=== PATIENT | male | born 1935 | race Caucasian/White ===

== ENCOUNTER 2018-10-06 14:10 | Inpatient (IN) | payer MEDICARE, OTHER ==
[~2018-10-06] VITALS: Ht 167.6 cm; Wt 100.8 kg
[2018-11-11] VITALS (13 sets, daily range): BP systolic 101–146; BP diastolic 50–80; PULSE 68–100; TEMP 97.5–98.3
[2018-11-11] MEDS ORDERED: LASIX 20MG TABL20 MG PO (05:45)
[2018-11-11] MEDS ORDERED: TOPROL XL100 MG PO (05:45)
[2018-11-11] MEDS ORDERED: COZAAR 50MG50 MG/TAB PO (05:46)
[2018-11-11] MEDS ORDERED: MULTI VITAMINS1 TAB PO (05:47)
[2018-11-11] MEDS ORDERED: COUMADIN 3MG3 MG/TAB PO (05:47)
[2018-11-11] MEDS ORDERED: FERROUSAL325 MG PO (05:48)
[2018-11-11] MEDS ORDERED: FOLIC ACID 40400 MCG PO (05:48)
[2018-11-11] MEDS ORDERED: LUTEIN20 M1 PO (05:49)
[2018-11-11] MEDS ORDERED: VITAMIN C500 MG PO (05:49)
[2018-11-11 06:29] LABS: INR 1.1 (0.8-3.0); PROTHROMBIN TIME 12.6 SECONDS (9.7-12.8)
--- NOTE | 2018-11-11 09:15 | NUR ---
returned to room from PACU per bed, awake and alert, IV infusing and placed on pump at 100ml/hr, O2 on at 3L/NC and O2 sat 94%, JOHNNIE hose on right leg and SCDS on bilaterally, has bulky dressing to left knee and is CD&I, rolled to side and no wrinkles in linens or wires under patient, has sensation to feet and is able to wiggle his toes, full assessment completed, see interventions for further info, taking sips of water and tolerates well, denies needs, family at bedside
--- NOTE | 2018-11-11 09:48 | NUR ---
awake and visiting with family, denies needs
--- NOTE | 2018-11-11 10:00 | NUR ---
c/o pain to left knee 08/15 and medicated with hydrocodone 7.5mg 2 tabs, provided pudding per patient's request and if tolerates will instruct on ordering regular food
--- NOTE | 2018-11-11 10:30 | NUR ---
awake and talking on phone, denies needs
--- NOTE | 2018-11-11 11:00 | NUR ---
states relief from pain pills given earlier, tolerated pudding and instructed on ordering regular food
--- NOTE | 2018-11-11 11:55 | NUR ---
sitting up in bed ready to eat regular food, medicated with scheduled toradol 15mg slow IV, denies needs
--- NOTE | 2018-11-11 13:00 | NUR ---
sitting up in bed and had lunch and tolerated well, visiting with friends, denies needs
--- NOTE | 2018-11-11 14:08 | NUR ---
MARIAMA met with the patient to discuss discharge plan. The patient lives in [place] with his , Jeannie. He reports independence with ADLs and has a cane, crutches, and a walker. The patient's PCP is Dr. Lawson Rios and he receives his medications at [facility]. He reports no difficulties obtaining his meds. The patient does not have advanced directives in EMR, but he states that he does have them completed and at home. He states his is his DPOA-HC. The patient plans to return home with his and receive outpatient therapy at [facility] upon discharge. No additional needs at this time.
--- NOTE | 2018-11-11 14:15 | NUR ---
appears to be sleeping, awakened and meds given, denies needs
--- NOTE | 2018-11-11 16:10 | NUR ---
Dr Arrington was in to see patient
--- NOTE | 2018-11-11 18:15 | NUR ---
sitting up in bed, has had supper and tolerated well, denies needs
--- NOTE | 2018-11-11 18:51 | NUR ---
bedside shift report given to JACEY Mccarthy
--- NOTE | 2018-11-11 20:00 | NUR ---
Report received, assumed care for applications system analyst. Assessment complete. VS stable. C/O pain to left knee-rating 5/10-[place] one tab given per dr order. Plan of care discussed for ambulation this shift. Verbalizes understanding. D5LR @ 60ml/hr infusing to Right wrist 20G. SCD/JOHNNIE to right lower extremity. Fresh ice pack to left knee. Grimes draining clear yellow urine. Bulky white dressing/liyah bandage-C/D/I. Clarification received on acetaminophen allergy-states darvocet caused the reaction-has taken acetaminophen since with no issues. Denies questions or concerns at this time. Call light within reach/bed in low/wheels locked. Will monitor.
--- NOTE | 2018-11-11 22:00 | NUR ---
Up out of bed at this time with assist of 2. Ambulated approx 100 feet. Tolerated well.
--- NOTE | 2018-11-12 05:00 | NUR ---
IV site infiltrated. New IV placed in left hand 20G.
[2018-11-12 05:30] VITALS: BP 126/53; PULSE 56; TEMP 97.5
[2018-11-12] MEDS ORDERED: NORCO 325 MG-7.1 TAB PO (06:14)
[2018-11-12] MEDS ORDERED: ULTRAM 50MG TAB50 MG PO (06:14)
--- NOTE | 2018-11-12 06:48 | NUR ---
Report given to JACEY Jimenez.
[2018-11-12 06:52] LABS: HEMOGLOBIN 13.2 g/dl (13.5-18.0)
[2018-11-12 07:06] LABS: INR 1.1 (0.8-3.0)
--- NOTE | 2018-11-12 07:16 | NUR ---
Report given to Grzegorz MARI
--- NOTE | 2018-11-12 07:18 | NUR ---
REPORT FROM JOSÉ MIGUEL MARI.
[2018-11-12 08:12] VITALS: BP 127/60; PULSE 92; TEMP 97.8
--- NOTE | 2018-11-12 08:42 | NUR ---
PT UP IN BED FOR BREAKFAST. DR COLES IN TO SEE PT AND CHANGE DRESSING. PT TOLERATED WELL, MAY NEED PLACEMENT.
[2018-11-12 11:47] VITALS: BP 121/58; PULSE 65; TEMP 97.6
--- NOTE | 2018-11-12 16:36 | NUR ---
PT VOIDING AND SITTING UP IN RECLINER RESTING.
[2018-11-12 16:38] VITALS: BP 128/55; PULSE 57; TEMP 97.8
--- NOTE | 2018-11-12 18:58 | NUR ---
Report to Sheila MARI.
[2018-11-12 19:28] VITALS: BP 145/66; PULSE 70; TEMP 98
--- NOTE | 2018-11-12 21:15 | NUR ---
Patient just returned from the bathroom and ambulated in hallway down inpatient rehab hallway and back to his room. Reviewed removing [place] hose twice a day for 20minutes and reapplying. [place] hose removed for now and SCD's applied. Ice pack on left knee. Tramadol reviewed and given for pain. Declined snack.
--- NOTE | 2018-11-12 22:45 | NUR ---
Patient resting quietly in bed with cpap on.
[2018-11-13] VITALS (7 sets, daily range): BP systolic 122–192; BP diastolic 55–83; PULSE 64–87; TEMP 97.5–98.6
--- NOTE | 2018-11-13 02:19 | NUR ---
Patient resting with eyes closed. CPAP on.
--- NOTE | 2018-11-13 04:10 | NUR ---
Patient awakened for vitals and new ice pack applied to left knee. Tramadol 50 mg given for pain.
--- NOTE | 2018-11-13 06:35 | NUR ---
reports tramadol not effective. [place] 1 tab reviewed and given for pain 4/10 left knee.
--- NOTE | 2018-11-13 07:03 | NUR ---
REPORT FROM FREDERIC MARI.
[2018-11-13 07:06] LABS: HEMATOCRIT 39.3 % (42.0-52.0)
[2018-11-13 07:08] LABS: INR 1.2 (0.8-3.0); PROTHROMBIN TIME 14.5 SECONDS (9.7-12.8)
--- NOTE | 2018-11-13 17:07 | NUR ---
PT REFUSING IRON SUPPLEMENT CAUSING CONSTIPATION. WANTS TO HOLD UNTIL HE HAS A BM.
--- NOTE | 2018-11-13 18:53 | NUR ---
REPORT TO RASHMI MARI.
--- NOTE | 2018-11-13 21:00 | NUR ---
Pt. sitting up in chair at this time. Pt. is A&OX3, assessment complete. INT to lt. hand patent. Aquacell dressing to lt. knee CDI. Pt. reports pain at a 5 on pain scale, gave paim meds per orders. Pt. c/o constipation. YOSHI Pabon notified. New orders received. Pt. denies further needs, call light within reach.
[2018-11-14 03:27] VITALS: BP 162/78; PULSE 88; TEMP 98.9
--- NOTE | 2018-11-14 06:44 | NUR ---
apppears to be dozing but arouses easily, CPAP on, bedside shift report received from JACEY Hall
[2018-11-14] MEDS ORDERED: CELEBREX 200MG200 MG PO (07:51)
[2018-11-14 07:52] LABS: INR 1.8 (0.8-3.0); PROTHROMBIN TIME 21.2 SECONDS (9.7-12.8)
--- NOTE | 2018-11-14 08:15 | NUR ---
attempting to get out of bed independently without his walker, reminded him about always using the walker and he verbalizes understanding, assisted into the bathroom
[2018-11-14 08:33] VITALS: BP 165/68; PULSE 93; TEMP 98.3
--- NOTE | 2018-11-14 08:40 | NUR ---
sitting on side of bed, full assessment comopleted, see interventions for further info, up and about in room independently
--- NOTE | 2018-11-14 08:55 | NUR ---
ambulated out to [facility] with physical therapy for group exercises
--- NOTE | 2018-11-14 09:35 | NUR ---
ambulated back to room and remains up in recliner after therapy
--- NOTE | 2018-11-14 10:00 | NUR ---
is ready to go home, medicated with ultram 100mg for c/os pain 07/16 and in anticipation of discharge
--- NOTE | 2018-11-14 10:15 | NUR ---
Patient will discharge home today with his . Patient will receive outpatient PT starting on Saturday. SW presented IM to patient and . Patient signed but did not want a copy.
--- NOTE | 2018-11-14 10:27 | NUR ---
discharge instructions given to patient and his , verbalizes understanding
--- NOTE | 2018-11-14 10:40 | NUR ---
discharged per WC
--- NOTE | 2018-11-14 11:03 | NUR ---
Initial visit; Patient thanked Glass Melt Operator for looking in on him and offering God's blessings.
== END 2018-11-14 10:40 | disposition home or self-care (01) | DRG 470 ==
LOC: JCC 11-11 05:11
PROVIDERS: Nurse Anesthetist, Certified Registered; Physician Assistant; ADMIT Orthopaedic Surgery
PROC: 0SRD0J9 Replacement of Left Knee Joint with Synthetic Substitute, Cemented, Open Approach (ICD-10-PCS; principal; 2018-11-11 07:30)
DX: M17.12 Unilateral primary osteoarthritis, left knee (principal); I48.91 Unspecified atrial fibrillation; H26.9 Unspecified cataract; G47.30 Sleep apnea, unspecified; I10 Essential (primary) hypertension; J44.9 Chronic obstructive pulmonary disease, unspecified; G47.33 Obstructive sleep apnea (adult) (pediatric); E03.9 Hypothyroidism, unspecified; Z87.891 Personal history of nicotine dependence
CPT/HCPCS: A4314; A9284; C1776; J0690; J1100; J1885; J2250; J2405; J2704; J3010; J7120; J7121